=== PATIENT | male | born 2000 | race Two or more races ===

== ENCOUNTER 2023-06-02 16:00 | Outpatient (CLI) | payer BC | END 2023-06-02 16:01 | disposition home or self-care (01) | LOC: SLEEPLAB 16:00 | PROVIDERS: ATTEND Family Medicine | DX: G47.33 Obstructive sleep apnea (adult) (pediatric) (principal); R53.83 Other fatigue; E66.9 Obesity, unspecified; G47.00 Insomnia, unspecified; Z68.30 Body mass index [BMI] 30.0-30.9, adult | CPT/HCPCS: 95800 ==

== ENCOUNTER 2024-12-14 10:03 | Outpatient (CLI) | payer BC | END 2024-12-14 10:04 | disposition home or self-care (01) | LOC: BICRAD 10:03 | PROVIDERS: ATTEND Family Medicine | DX: M54.2 Cervicalgia (principal); M62.838 Other muscle spasm | CPT/HCPCS: 72040 ==